=== PATIENT | male | born 1970 | race Caucasian/White ===

== ENCOUNTER 2019-09-30 20:33 | Emergency (ER) | payer BC ==
--- NOTE | 2019-09-30 22:46 | ED ---
Abdominal Pain/Male - HPI Summary HPI Summary: Patient is a 49 y/o M presenting to [facility] with complaints of abdominal pain, nausea, decreased appetite. He states that the pain onset around 1700 09/30/19. He states that the pain has been mild overall (rated 2-3/10 in severity) but intermittently sharp (at which point the pain is a 4/10). He claims Hx of diverticular rupture; patient states the pain he experienced during this episode was mild at first but become suddenly severe. Patient is required to have a colostomy bag as a result, patient is concerned for another possible episode. He denies fever, diarrhea and changes to bowel movements. PMHx of HTN, HLD noted. He is on rosuvastatin, amlodipine, sertraline. NKDA reported. He denies Hx of cardiac and lung disease. Patient is a former smoker of seven years but still takes nicorette lozenges. Alcohol and substance usage are denied. FMHx of colon cancer noted. Patient has had several colonoscopies. Home medications and allergies are reviewed. Home Medications Medication Instructions Recorded Confirmed Type Nicotine Polacrilex [Nicorette] 2 mg PO TID 08/21/13 04/23/16 History Cyclobenzaprine TAB* [Flexeril 10 mg PO TID PRN #21 tab 04/12/16 04/23/16 Rx TAB*] Ibuprofen TAB* [Motrin TAB*] 600 mg PO QID #40 tab 04/12/16 04/23/16 Rx Sertraline* [Zoloft*] 100 mg PO DAILY 04/12/16 04/23/16 History LORazepam TAB(*) [Ativan TAB(*)] 0.5 mg PO TID PRN 04/19/16 04/23/16 History Rosuvastatin Calcium [Crestor] 5 mg PO DAILY 04/23/16 04/23/16 History - History of Current Complaint Chief Complaint: EDAbdPain Stated Complaint: ABD PAIN PER PT Time Seen by Provider: 09/30/19 22:34 Hx Obtained From: Patient Onset/Duration: Lasting Hours, Still Present Timing: Constant, Lasting Hours Severity Currently: Mild Pain Intensity: 2 Pain Scale Used: 0-10 Numeric Associated Signs And Symptoms: Positive: Decreased Appetite, Nausea. Negative: Constipation, Diarrhea - Allergies/Home Medications Allergies/Adverse Reactions: Allergies Allergy/AdvReac Type Severity Reaction Status Date / Time BEES Allergy Hives Uncoded 09/30/19 22:44 Home Medications: Home Medications Nicotine Polacrilex [Nicorette] 2 mg PO TID 08/21/13 [History Confirmed 09/30/19 ] Cyclobenzaprine TAB* [Flexeril TAB*] 10 mg PO TID PRN #21 tab 04/12/16 [Rx Confirmed 09/30/19] Ibuprofen TAB* [Motrin TAB*] 600 mg PO QID #40 tab 04/12/16 [Rx Confirmed ] Sertraline* [Zoloft*] 100 mg PO DAILY 04/12/16 [History Confirmed 09/30/19] LORazepam TAB(*) [Ativan TAB(*)] 0.5 mg PO TID PRN 04/19/16 [History Confirmed 09/30/19] Rosuvastatin Calcium [Crestor] 5 mg PO DAILY 04/23/16 [History Confirmed ] PMH/Surg Hx/FS Hx/Imm Hx Endocrine/Hematology History: Denies: Hx Diabetes, Hx Thyroid Disease Cardiovascular History: Denies: Hx Hypertension Respiratory History: Denies: Hx Asthma, Hx Chronic Obstructive Pulmonary Disease (COPD) GI History: Denies: Hx Ulcer Psychiatric History: Denies: Hx Eating Disorder, Hx of Violent Episodes Against Others - Cancer History Cancer Type, Location and Year: ruptured divericula 2013 - Surgical History Surgery Procedure, Year, and Place: CHOLOSTOMY Infectious Disease History: No Infectious Disease History: Denies: Hx Clostridium Difficile, Hx Hepatitis, Hx Human Immunodeficiency Virus (HIV), Hx of Known/Suspected MRSA, Hx Shingles, Hx Tuberculosis, Traveled Outside the [place] in Last 30 Days - Family History Known Family History: Positive: Hypertension - Social History Alcohol Use: Rare Substance Use Type: Reports: None Smoking Status (MU): Former Smoker Type: Cigarettes Amount Used/How Often: quit 01/20/13 - Additional Comments History Additional Comments: PMHx of HTN, HLD, diverticular rupture FMHx of colon cancer SHx of nicorette lozenges Review of Systems Negative: Fever Gastrointestinal: Other - positive - decreased appetite; negative - changes in bowel movement Positive: Abdominal Pain, Nausea. Negative: Diarrhea All Other Systems Reviewed And Are Negative: Yes Physical Exam - Summary Physical Exam Summary: General: Well-developed, Well-nourished Male. No acute distress. HEENT: Normocephalic, Atraumatic. Eyes: Conjuctiva normal, PERRL. Oropharynx: Clear, mucous membranes moist, (-) exudates. Neck: Soft, FROM, (-) lymphadenopathy, (-) thyromegaly, (-) JVD. Cardiovascular: Normal sinus rhythm, (-) murmur. Lungs: Clear to auscultation bilaterally (-) wheezes, (-) rales, (-) rhonchi. Abdomen: Soft, mild tenderness to palpation at the RLQ, non-distended, (-) organomegaly, normal bowel sounds. Back: (-) CVA tenderness Extremities: No edema. Skin: Warm, dry, (-) rash. Neuro: Alert and oriented x3, moves all extremities equally. No ataxia. No gait disturbance. No sensory deficit. Normal strength, normal sensation. Psychiatric: Mildly anxious-appearing Triage Information Reviewed: Yes Vital Signs On Initial Exam: Initial Vitals Temp Pulse Resp BP Pulse Ox 98.3 F 86 20 183/113 97 09/30/19 20:50 09/30/19 20:50 09/30/19 20:50 09/30/19 20:50 09/30/19 20:50 Vital Signs Reviewed: Yes Procedures - Sedation Patient Received Moderate/Deep Sedation with Procedure: No Diagnostics - Vital Signs Vital Signs Temp Pulse Resp BP Pulse Ox 09/30/19 20:50 98.3 F 86 20 183/113 97 - Laboratory Result Diagrams: 09/30/19 22:43 09/30/19 22:43 Lab Statement: Any lab studies that have been ordered have been reviewed, and results considered in the medical decision making process. - CT ABD/PEL CT Interpretation Completed By: Radiologist Summary of CT Findings: IMPRESSION: 1. The appendix is unremarkable. 2. New since the prior exam are postoperative changes of left lower quadrant. colostomy. There is colonic diverticulosis without evidence for acute. diverticulitis. THIS REPORT WAS REVIEWED BY ED PHYSICIAN. Re-Evaluation - Re-Evaluation First Eval Re-Evaluation Time: 02:19 Comment: Workup discussed, patient discharged to home with PCP followup. Abdominal Pain Male Course/Dx - Course Course Of Treatment: 49-year-old male presents from home with the right lower quadrant abdominal pain. Patient describes as a intermittent sharp pain. /10. Also has had some nausea and anorexia today. [place] feverish at home. Patient states he is concerned mostly because when he had symptoms like this previously he waited too long and then ended up having diverticulitis and a colostomy. On exam he has mild tenderness to palpation. No fever. laboratories demonstrated a normal white count. CT abdomen and pelvis shows a normal appendix. No acute abnormalities. Patient is discharged to home. He states his pain is improved since being here. Follow up with PCP. Follow-up sooner for any worsening symptoms. - Diagnoses Provider Diagnoses: RLQ abdominal pain Discharge ED - Sign-Out/Discharge Documenting (check all that apply): Patient Departure - discharge - Discharge Plan Condition: Stable Disposition: HOME Patient Education Materials: Acute Abdominal Pain (ED) Referrals: Angélica Oviedo MD [Primary Care Provider] - 3 Days Additional Instructions: PLEASE RETURN TO ED FOR ANY NEW OR WORSENING SYMPTOMS. PLEASE FOLLOW UP WITH YOUR PRIMARY CARE PHYSICIAN WITHIN THREE DAYS. - Billing Disposition and Condition Condition: STABLE Disposition: Home - Attestation Statements Document Initiated by Paul: Yes Documenting Scribe: MERRICK FARRELL Provider For Whom Paul is Documenting (Include Credential): SUSIE CRAWFORD MD Scribe Attestation: IMERRICK, scribed for SUSIE CRAWFORD MD on 10/01/19 at 0349. Scribe Documentation Reviewed: Yes Provider Attestation: The documentation as recorded by the MERRICK watts accurately reflects the service I personally performed and the decisions made by me, SUSIE CRAWFORD MD Status of Scribe Document: Viewed
[2019-09-30 22:49] LABS: Urine Appearance Clear; Urine Bilirubin Negative (Negative); Urine Blood 1+ (Negative); Urine Color Yellow; Urine Glucose 1+(50 mg/dL) (Negative); Urine Ketones Trace (Negative); Urine Nitrite Negative (Negative); Urine Protein 1+(30 mg/dL) (Negative); Urine Urobilinogen Negative (Negative)
[2019-09-30 22:50] LABS: ABS Basophils 0.1 10^3/ul (0-0.2); ABS Eosinophils 0.5 10^3/ul (0-0.6); ABS Lymphocytes 4.1 10^3/ul (1.0-4.8); ABS Monocytes 0.7 10^3/ul (0-0.8); ABS Neutrophils 5.2 10^3/ul (1.5-7.7); Eosinophil % 4.4 %; Hematocrit 44 % (42-52); Hemoglobin 15.9 g/dL (14.0-18.0); Lymphocyte % 38.6 %; Mean Corpuscular HGB Conc 36 g/dL (31-36); Mean Corpuscular Hemoglobin 30 pg (27-31); Mean Corpuscular Volume 82 fL (80-94); Nucleated Red Blood Cells % 0.1; Platelet Count 322 10^3/uL (150-450); Red Blood Count 5.37 10^6 /uL (4.18-5.48); Red Cell Distribution Width 14 % (10-15); White Blood Count 10.5 10^3/uL (3.5-10.8)
[2019-09-30 22:53] LABS: Urine Bacteria Absent (Absent); Urine Red Blood Cell 2+(6-10/hpf) (Absent); Urine Squamous Epithelial Cell Present (Absent); Urine White Blood Cell Trace(0-5/hpf) (Absent)
[2019-09-30 23:07] LABS: Albumin 4.4 g/dL (3.2-5.2); Albumin/Globulin Ratio 1.5 (1-3); BUN/Creatinine Ratio 14.2 (8-20); Calcium 9.6 mg/dL (8.6-10.3); EGFR African American 89.1 (>60); EGFR Non-African American 73.7 (>60); Total Bilirubin 0.5 mg/dL (0.2-1.0); Total Protein 7.4 g/dL (6.4-8.9)
[2019-09-30 23:42] LABS: Potassium 4.1 mmol/L (3.5-5.0)
[2019-10-01] MEDS ORDERED: Iohexol 300* (CONTRAST) 10 ML SDV IV ONE (00:03)
[2019-10-01 02:20] VITALS: BP 146/86
== END 2019-10-01 02:20 | disposition home or self-care (01) ==
LOC: ED 20:33
DX: R10.31 Right lower quadrant pain (principal); I10 Essential (primary) hypertension; E78.00 Pure hypercholesterolemia, unspecified; Z87.891 Personal history of nicotine dependence; Z79.899 Other long term (current) drug therapy
CPT/HCPCS: 36415; 74177; 80053; 81003; 81015; 85025; 87086; 99284; Q9967